=== PATIENT | female | born 2000 | race Two or more races ===

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

== ENCOUNTER 2024-07-09 05:49 | Emergency (ER) | payer MEDICAID, MEDICARE, OTHER ==
[~2024-07-09] VITALS: Ht 157.5 cm; Wt 63.5 kg
[2024-07-09 06:22] VITALS: O2SAT 100
[2024-07-09 06:30] LABS: BASOPHILS % 0.2 % (0.0-2.0); EOSINOPHILS % 0.2 % (0.0-5.0); HEMATOCRIT. 36.6 % (36.0-48.0); HEMOGLOBIN. 12.2 g/dL (12.0-16.0); MEAN CORPUSCULAR HEMOGLOBIN 30.5 pg (28.0-32.0); MEAN CORPUSCULAR HGB CONC 33.4 g/dL (31.0-37.0); MEAN CORPUSCULAR VOLUME 91.2 fL (81.0-99.0); MEAN PLATELET VOLUME 8.3 fl (7.4-10.4); MONOCYTES % 6.8 % (2.0-8.0); NEUTROPHILS % 81.8 % (40.0-76.0); PLATELET 227 x1000/uL (130-400); RED BLOOD CELL COUNT 4.01 mill/uL (4.2-5.4); RED CELL DISTRIBUTION WIDTH 13.5 % (11.6-14.6); WHITE BLOOD COUNT 13.4 x1000/uL (4.5-11.0)
[2024-07-09 06:33] LABS: CHLORIDE 111 mEq/L (98-107); POTASSIUM 3.3 mEq/L (3.5-5.1); SODIUM 140 mEq/L (136-145)
[2024-07-09 06:35] LABS: CALCIUM 8.7 mg/dL (8.7-10.4); CARBON DIOXIDE 20 mEq/L (21-32)
[2024-07-09 06:39] LABS: CREATININE 0.5 mg/dL (0.6-1.0)
[2024-07-09 06:40] LABS: GLUCOSE 92 mg/dL (70-105)
[2024-07-09 07:18] LABS: B-HCG QUANTITATIVE 25609 mIU/mL (<3); UREA NITROGEN BLOOD < 5 mg/dL (9-23)
[2024-07-09 07:20] VITALS: TEMP 36.66960
[2024-07-09 08:26] VITALS: BP 112/75; PULSE 67; RESP 18; O2SAT 99
== END 2024-07-09 08:26 | disposition short-term general hospital (02) ==
LOC: ER 06:09
DX: O26.893 Other specified pregnancy related conditions, third trimester (principal); Z3A.35 35 weeks gestation of pregnancy
CPT/HCPCS: 80048; 84702; 85025; 86850; 86900; 86901; 36415; 76805; 76817; 99291; 99292; Z7610